=== PATIENT | female | born 2000 | race Caucasian/White ===

== ENCOUNTER → 2020-09-11 22:47 | Observation (INO) ==
[2020-09-11 20:49] LABS: Basophils # 0.1 K/mcL (0.0-0.2); Basophils % 0.4 %; Eosinophils % 0.1 %; Hematocrit 34.4 % (35.3-44.9); Hemoglobin 11.3 g/dL (11.5-15.4); Immature Granulocytes % 2.1 % (0-4); Lymphocytes # 2.4 K/mcL (0.6-4.6); Mean Corpuscular HGB Conc 32.8 g/dL (31.6-35.5); Mean Corpuscular Hemoglobin 27.4 pg (28.0-33.3); Mean Corpuscular Volume 83.5 fL (83.0-100.0); Mean Platelet Volume 10.9 fL (9.4-12.4); Monocytes % 6.7 %; Neutrophils # 10.5 K/mcL (1.6-8.9); Platelet Count 274 K/mcL (140-400); Red Blood Count 4.12 M/mcL (3.82-4.97); Red Cell Distribution Width 12.8 % (11.5-14.5); Segmented Neutrophils % 73.7 %; White Blood Count 14.3 K/mcL (4.3-11.1)
[2020-09-11 20:56] LABS: Protein/Creatinine Ratio,Urine 0.81 mg/mg (0.00-0.20)
[2020-09-11 21:05] LABS: Alanine Aminotransferase 10 Units/L (7-52); Aspartate Amino Transferase 13 Units/L (13-39); BUN/Creatinine Ratio 14 (6-26); Blood Urea Nitrogen 6 mg/dL (6-20); Lactate Dehydrogenase 152 Units/L (140-271); Uric Acid 3.4 mg/dL (2.3-7.6); eGFR For African Americans > 60 (> 60); eGFR For Non-African Americans > 60 (> 60)
[~2020-09-11 22:47] MED LIST: Ringers Solution, Lactated 1,000 ML IVC ONE
== END | disposition home or self-care (01) ==
LOC: 1NENULAB
PROVIDERS: ADMIT Student in an Organized Health Care Education/Training Program; ATTEND Student in an Organized Health Care Education/Training Program

== ENCOUNTER 2020-09-29 13:44 | Inpatient (IN) ==
[2020-09-29] MEDS ORDERED: Ringers Solution, Lactated 1,000 ML ONE (14:16)
[2020-09-29] MEDS ORDERED: Ondansetron 4 MG/2 ML VIAL IVP PRN (14:40)
[2020-09-29] MEDS ORDERED: Famotidine 20 MG/2 ML VIAL IVP PRN (14:40)
[2020-09-29] MEDS ORDERED: *HR* Nalbuphine 10 MG/ML AMPUL IV PRN (14:40)
[2020-09-29] MEDS ORDERED: Metoclopramide 10 MG/2 ML VIAL IVP PRN (14:40)
[2020-09-29] MEDS ORDERED: Naloxone 0.4 MG/ML INJ IVP PRN (14:40)
[2020-09-29] MEDS ORDERED: Ringers Solution, Lactated 1,000 ML IVC SCH (14:45)
[2020-09-29 14:50] LABS: Basophils % 0.4 %; Hematocrit 34.5 % (35.3-44.9); Hemoglobin 11.7 g/dL (11.5-15.4); Lymphocytes % 25.3 %; Mean Corpuscular HGB Conc 33.9 g/dL (31.6-35.5); Mean Corpuscular Hemoglobin 28.3 pg (28.0-33.3); Mean Corpuscular Volume 83.5 fL (83.0-100.0); Mean Platelet Volume 10.8 fL (9.4-12.4); Monocytes # 0.6 K/mcL (0.0-1.3); Monocytes % 7.1 %; Neutrophils # 5.3 K/mcL (1.6-8.9); Platelet Count 226 K/mcL (140-400); Red Blood Count 4.13 M/mcL (3.82-4.97); Segmented Neutrophils % 66.2 %
[2020-09-29 14:59] LABS: Amphetamine Screen,Urine Negative ng/mL (Cutoff=1000); Barbiturate Screen,Urine Negative ng/mL (Cutoff=200); Benzodiazepines Screen,Urine Negative ng/mL (Cutoff=200); Cannabinoid Screen,Urine Negative ng/mL (Cutoff = 50); Cocaine Screen,Urine Negative ng/mL (Cutoff= 300); Opiate Screen,Urine Negative ng/mL (Cutoff=300); Phencyclidine Screen,Urine Negative ng/mL (Cutoff=25)
[2020-09-29 15:09] LABS: Aspartate Amino Transferase 12 Units/L (13-39); BUN/Creatinine Ratio 9 (6-26); Blood Urea Nitrogen 5 mg/dL (6-20); Calcium 8.7 mg/dL (8.6-10.3); Carbon Dioxide 21 mEq/L (23-29); Chloride 106 mEq/L (98-107); Glucose 106 mg/dL (70-105); Osmolality,Calculated 278 (280-300); Potassium 3.5 mEq/L (3.5-5.1); Sodium 135 mEq/L (136-145); eGFR For African Americans > 60 (> 60); eGFR For Non-African Americans > 60 (> 60)
[2020-09-29] MEDS ORDERED: miSOPROStoL 25 MCG TABLET PO SCH (16:00)
[2020-09-29] MEDS ORDERED: Oxytocin 20 units/ LR 1000 mL 20 UNIT/1,000 ML BAG IVC SCH (20:15)
[2020-09-29] MEDS ORDERED: Ropivacaine/PF 0.2% 20 ML VIAL ONE (21:22)
[2020-09-29] MEDS ORDERED: *HR* FentaNYL (PF) 100 MCG/2 ML VIAL ONE (21:22)
[2020-09-29] MEDS ORDERED: Epidural Premix (fent/bupiv) 110 ML EP ONE (21:49)
[2020-09-29] MEDS ORDERED: EPHEDrine 50 MG/ML VIAL IVP PRN (22:00)
[2020-09-29] MEDS ORDERED: Epidural Premix (fent/bupiv) 110 ML EP SCH (22:00)
[2020-09-29 23:16] LABS: Alanine Aminotransferase 8 Units/L (7-52); Lactate Dehydrogenase 137 Units/L (140-271); Uric Acid 4.3 mg/dL (2.3-7.6)
[2020-09-29 23:17] LABS: Protein/Creatinine Ratio,Urine 0.19 mg/mg (0.00-0.20)
[2020-09-30] MEDS ORDERED: Lanolin 7 G OINT...G. TP PRN (06:07)
[2020-09-30] MEDS ORDERED: Benzocaine/Menthol 56 GM AEROSOL SPRAY TP PRN (06:07)
[2020-09-30] MEDS ORDERED: Acetaminophen 325 MG TABLET PO PRN (06:07)
[2020-09-30] MEDS ORDERED: *HR* HYDROcodone/Acet 5/325 mg TABLET PO PRN (06:07)
[2020-09-30] MEDS ORDERED: Oxytocin 20 units/ LR 1000 mL 20 UNIT/1,000 ML BAG IVC SCH (06:07)
[2020-09-30] MEDS: Ibuprofen 600 MG TABLET PO PRN ×3 (07:00→23:57)
[2020-09-30] MEDS: Prenatal Vit/FA 1 EACH TABLET PO SCH (07:59)
[2020-10-01] MEDS: Ibuprofen 600 MG TABLET PO PRN (06:58)
[2020-10-01 07:57] VITALS: BP 118/90
[2020-10-01] MEDS: Prenatal Vit/FA 1 EACH TABLET PO SCH (08:59)
== END 2020-10-01 13:40 | disposition home or self-care (01) | DRG 560 ==
LOC: 1NENULAB → OBSVTOIN 13:44 → 1NENUOBS 09-30 06:05
PROVIDERS: ADMIT Obstetrics & Gynecology; ATTEND Obstetrics & Gynecology